=== PATIENT | female | born 1970 | race Caucasian/White ===

== ENCOUNTER 2021-11-29 13:55 | Emergency (ER) | payer MEDICARE, OTHER ==
[2021-11-29 14:56] LABS: BASOPHIL 0.8 % (0-2); EOSINOPHIL 1.8 % (0-5); HCT 42.9 % (37.0-47.0); LYMPHOCYTE 22.3 % (15-48); MCH 30.7 pg (25.0-31.0); MCHC 32.6 g/dL (32.0-36.0); MCV 94.1 fL (78.0-100.0); MONOCYTE 7.5 % (0-12); NEUTROPHIL 66.5 % (41-80); NRBC 0; PLT 246 K/uL (150-400); RBC 4.56 M/uL (4.20-5.40); RDW 13.7 % (11.5-14.0); WBC 11.3 K/uL (4.0-10.5)
[2021-11-29 15:08] LABS: INR 0.99 (0.9-1.2); PROTHROMBIN TIME 12.8 SECONDS (11.9-13.9); PTT 31.7 SECONDS (24.9-34.6)
[2021-11-29 15:34] LABS: ALBUMIN 3.3 g/dL (3.4-5.0); BILIRUBIN - TOTAL 0.3 mg/dL (0.2-1.0); CREATININE 0.92 mg/dL (0.51-0.95); GLOBULIN (CALCULATION) 3.6 g/dL; POTASSIUM 4.2 mmol/L (3.5-5.1); TOTAL PROTEIN 6.9 g/dL (6.4-8.2)
[2021-11-29 18:22] LABS: CORONAVIRUS 2019 SARS-COV-2 NEGATIVE (NEGATIVE); INFLUENZA A NAA NEGATIVE (NEGATIVE)
== END 2021-11-29 18:20 | disposition other institution (70) ==
LOC: FER 13:55
PROVIDERS: Emergency Medicine
DX: I20.0 Unstable angina (principal); I49.3 Ventricular premature depolarization; F17.210 Nicotine dependence, cigarettes, uncomplicated; Z20.822 Contact with and (suspected) exposure to COVID-19; Z86.79 Personal history of other diseases of the circulatory system; Z88.8 Allergy status to other drugs, medicaments and biological substances
CPT/HCPCS: 36415; 71045; 80053; 84484; 85025; 85610; 85730; 93005; J1170; J1644; J2405; U0002